=== PATIENT | male | born 1975 | race Caucasian/White ===

== ENCOUNTER 2016-12-22 22:20 | Emergency (ER) | payer MEDICAID, SELFPAY ==
[2016-12-22 22:43] VITALS: BP 114/78
--- NOTE | 2016-12-22 23:09 | EDM.PDOC ---
[id number]: Left flank pain Time Seen by Provider: 12/22/16 22:45 Source of Information: Reports: Patient History Limitations: Reports: No Limitations - History of Present Illness INITIAL COMMENTS - FREE TEXT/NARRATIVE: Pt has a long standing history with kidney stones and has had multiple surgeries in the past. He has also been seen by many specialities regarding this. Today the pain has progressed despite taking Toradol at 12noon and again 8pm. The pain did not gotten any better. Pt has many adhesions that causes this chronic pain. Onset: Gradual Location: Reports: Back Quality: Reports: Ache, Sharp, Stabbing Severity: Severe Improves with: Reports: Rest. Denies: Cold Therapy, Heat Therapy Worsens with: Reports: Movement Associated Symptoms: Reports: No Other Symptoms. Denies: Fever/Chills, Headaches, Nausea/Vomiting, Weakness Treatments NURSE MIDWIFE/CLINICAL INSTRUCTOR: Reports: Other (see below) (Toradol at 8pm. 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 - Past Surgical History Male Surgical History: Reports: Kidney Stone Extraction Musculoskeletal Surgical History: Reports: Arthroscopic Knee, Shoulder Surgery Social & Family History - Tobacco Use Smoking Status *Q: Never Smoker Years of Tobacco use: 20 Second Hand Smoke Exposure: No - Alcohol Use Days Per Week of Alcohol Use: 0 Number of Drinks Per Day: 4 Total Drinks Per Week: 0 - Recreational Drug Use Recreational Drug Use: No ED ROS GENERAL - Review of Systems Review Of Systems: See Below Constitutional: Reports: No Symptoms HEENT: Reports: No Symptoms Respiratory: Reports: No Symptoms Cardiovascular: Reports: No Symptoms GI/Abdominal: Reports: No Symptoms Musculoskeletal: Reports: Back Pain, Other (flank pain ) Skin: Reports: No Symptoms Neurological: Reports: No Symptoms ED EXAM, RENAL/ - Physical Exam Exam: See Below Exam Limited By: No Limitations General Appearance: Alert, WD/WN, No Apparent Distress Respiratory/Chest: No Respiratory Distress, Lungs Clear Cardiovascular: Normal Peripheral Pulses, Regular Rate, Rhythm, No Edema, No JVD , No Murmur GI/Abdominal: Normal Bowel Sounds, Non-Tender, No Distention, No Abnormal Bruit , No Mass Back Exam: Normal Inspection, Full Range of Motion (painful when moving but can complete), Muscle Spasm Extremities: Normal Inspection, Normal Range of Motion Neurological: Alert, Oriented Skin Exam: Warm, Dry, Intact Course - Vital Signs Last Recorded V/S: Last Vital Signs Temp 36.1 C 12/22/16 22:36 Pulse 76 12/22/16 22:36 Resp 16 12/22/16 22:36 BP 114/78 12/22/16 22:36 Pulse Ox 97 12/22/16 22:36 - Orders/Labs/Meds Meds: Medications Discontinued Medications Generic Name Dose Route Start Last Admin Trade Name Freq PRN Reason Stop Dose Admin Orphenadrine Citrate 60 mg 12/22/16 23:30 12/22/16 23:32 Norflex IM 60 mg Q12H NATIVIDAD Administration Departure - Departure Time of Disposition: 23:53 Disposition: Home, Self-Care 01 Condition: Good Clinical Impression: Back muscle spasm, Flank pain, Pain - Discharge Information Instructions: Pain Medicine Instructions, [id number] Referrals: Tyra Andrews NP [Primary Care Provider] - Forms: ED Department Discharge, ED Summary Discharge
== END 2016-12-22 23:53 | disposition home or self-care (01) ==
LOC: VM.ED 22:20
DX: M62.830 Muscle spasm of back (principal); R10.9 Unspecified abdominal pain; Z88.5 Allergy status to narcotic agent; Z79.899 Other long term (current) drug therapy
CPT/HCPCS: 96372; 99284; J2360

== ENCOUNTER 2017-01-28 18:56 | Emergency (ER) | payer MEDICAID ==
[2017-01-28] MEDS ORDERED: Sodium Chloride 0.9% 10 ML Syringe FLUSH PRN (19:13)
[2017-01-28] MEDS ORDERED: Sodium Chloride 0.9% 1,000 ML IV ONE (19:15)
[2017-01-28 19:16] VITALS: BP 167/116
[2017-01-28] MEDS ORDERED: Ondansetron 4 MG/2 ML SDV IVPUSH ONE (19:16)
--- NOTE | 2017-01-28 19:22 | EDM.PDOC ---
ED HPI GENERAL MEDICAL PROBLEM - General Chief Complaint: Flank Pain Stated Complaint: LEFT KIDNEY/FLANK PAIN Time Seen by Provider: 01/28/17 18:58 Source of Information: Reports: Patient, Family, RN, RN Notes Reviewed History Limitations: Reports: No Limitations - History of Present Illness INITIAL COMMENTS - FREE TEXT/NARRATIVE: Patient presents emergency room at [facility] complaining of chronic left flank pain. The patient states his kidney issues began about 2-3 years ago. The patient states she's had multiple issues with kidney stones, renal adhesions, and celiac nerve adhesions. The patient states that he has been seen at the [facility] in [place] for celiac nerve blocks. The patient states that the pain is present continuously to some degree. The patient states that the pain has escalated over the past couple of days. The patient states he has been using Tylenol and Advil without any relief. The patient complains of nausea and vomiting. No diarrhea. No fevers. Otherwise no other concerns. Duration: Chronic Left Flank Pain Score (Numeric/FACES): 7 - Related Data Allergies Allergy/AdvReac Type Severity Reaction Status Date / Time morphine Allergy Itching Verified 01/28/17 19:07 [email or web address] Allergy Itching Uncoded 01/28/17 19:08 Home Meds: Home Meds . 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 - Past Surgical History Male Surgical History: Reports: Kidney Stone Extraction Musculoskeletal Surgical History: Reports: Arthroscopic Knee, Shoulder Surgery Social & Family History - Tobacco Use Smoking Status *Q: Never Smoker Years of Tobacco use: 20 Second Hand Smoke Exposure: No - Alcohol Use Days Per Week of Alcohol Use: 0 Number of Drinks Per Day: 4 Total Drinks Per Week: 0 - Recreational Drug Use Recreational Drug Use: No ED ROS GENERAL - Review of Systems Review Of Systems: See Below Constitutional: Denies: Fever, Chills, Weakness Respiratory: Denies: Shortness of Breath, Cough Cardiovascular: Denies: Chest Pain, Palpitations GI/Abdominal: Reports: Nausea, Vomiting. Denies: Abdominal Pain, Diarrhea : Reports: Flank Pain Skin: Reports: No Symptoms Neurological: Reports: No Symptoms ED EXAM, RENAL/ - Physical Exam Exam: See Below Exam Limited By: No Limitations General Appearance: Alert, No Apparent Distress Respiratory/Chest: No Respiratory Distress, Lungs Clear, Normal Breath Sounds Cardiovascular: Regular Rate, Rhythm GI/Abdominal: Normal Bowel Sounds, Soft, Non-Tender (Male) Exam: Deferred Neurological: Alert, Oriented Skin Exam: Warm, Dry, Intact, Normal Color, No Rash Course - Vital Signs Last Recorded V/S: Last Vital Signs Temp 36.9 C 01/28/17 19:00 Pulse 89 01/28/17 19:00 Resp 16 01/28/17 19:00 BP 167/116 H 01/28/17 19:00 Pulse Ox - Orders/Labs/Meds Orders: Active Orders 24 hr Category Date Time Status URINE DRUG SCREEN,POC [POC] Stat Lab 01/28/17 20:08 Uncollected Sodium Chloride 0.9% [Saline Flush] Med 01/28/17 19:13 Active 10 ml FLUSH ASDIRECTED PRN Peripheral IV Insertion Adult [OM.PC] Routine Oth 01/28/17 19:13 Ordered Medication Orders Sodium Chloride (Saline Flush) 10 ml FLUSH ASDIRECTED PRN PRN Reason: Keep Vein Open Labs: Laboratory Tests 01/28/17 01/28/17 Range/Units 19:31 19:37 WBC 4.6 (4.0-10.0) x10^3/uL RBC 3.92 L (4.5-6.0) x10^6/uL Hgb 13.5 L D (14.0-18.0) g/dL Hct 36.7 L (40.0-52.0) % MCV 93.6 H (78.0-93.0) fL MCH 34.4 H (26.0-32.0) pg MCHC 36.8 H (32.0-36.0) g/dL RDW Coeff of Sofía 11.3 (10.0-15.0) % Plt Count 168 (130-400) x10^3/uL Neut % (Auto) 37.6 L (50.0-80.0) % Lymph % (Auto) 41.3 (25.0-50.0) % [place] % (Auto) 16.2 H (2.0-11.0) % Eos % (Auto) 4.5 H (0.0-4.0) % Baso % (Auto) 0.4 (0.2-1.2) % Urine Color Yellow (YELLOW) Urine Appearance Clear (CLEAR) Urine pH 6.5 (5.0-8.0) Ur Specific Logan 1.025 Urine Protein Negative (NEGATIVE) mg/dL Urine Glucose (UA) Negative (NEGATIVE) mg/dL Urine Ketones Negative (NEGATIVE) mg/dL Urine Occult Blood Negative (NEGATIVE) Urine Nitrite Negative (NEGATIVE) Urine Bilirubin Negative (NEGATIVE) Urine Urobilinogen 1.0 (0.2) EU/dL Ur Leukocyte Esterase Negative (NEGATIVE) Urine RBC 0-5 (NOT SEEN) /HPF Urine WBC Not seen (NOT SEEN) /HPF Ur Squamous Epith Cells Not seen (NEGATIVE) /HPF Urine Bacteria Rare (NEGATIVE) /HPF Urine Mucus Few H (NEGATIVE) /LPF Meds: Medications Generic Name Dose Route Start Last Admin Trade Name Freq PRN Reason Stop Dose Admin Sodium Chloride 10 ml 01/28/17 19:13 Saline Flush FLUSH ASDIRECTED PRN Keep Vein Open Discontinued Medications Generic Name Dose Route Start Last Admin Trade Name Freq PRN Reason Stop Dose Admin Chlorpromazine HCl 50 mg 01/28/17 19:28 01/28/17 19:40 Thorazine IM 01/28/17 19:29 50 mg ONETIME ONE Administration Sodium Chloride 1,000 mls @ 999 mls/hr 01/28/17 19:15 01/28/17 19:35 Normal Saline IV 01/28/17 20:15 999 mls/hr ONETIME ONE Administration Chlorpromazine HCl 25 mg/ 51 mls @ 100 mls/hr 01/28/17 19:22 Sodium Chloride IV 01/28/17 19:52 ONETIME ONE Ondansetron HCl 4 mg 01/28/17 19:16 01/28/17 19:42 Zofran IVPUSH 01/28/17 19:17 4 mg ONETIME ONE Administration Orphenadrine Citrate 60 mg 01/28/17 19:23 01/28/17 19:40 Norflex IM 01/28/17 19:24 60 mg Q12H ONE Administration Departure - Departure Time of Disposition: 20:54 Disposition: Home, Self-Care 01 Condition: Good Clinical Impression: Flank pain, chronic - Discharge Information Instructions: Pain Medicine Instructions, [id number], Flank Pain, Easy-to- Read Referrals: Tyra Andrews NP [Primary Care Provider] - Forms: ED Department Discharge Additional Instructions: 1. Stay well hydrated and rest 2. Continue to alternate Tylenol/Advil 3. Call your Primary care provider to schedule a follow up ER appointment - Problem List Review Problem List Initiated/Reviewed/Updated: Yes - My Orders Last 24 Hours: My Active Orders 01/28/17 19:13 Sodium Chloride 0.9% [Saline Flush] 10 ml FLUSH ASDIRECTED PRN Peripheral IV Insertion Adult [OM.PC] Routine 01/28/17 20:08 URINE DRUG SCREEN,POC [POC] Stat - Assessment/Plan Last 24 Hours: My Active Orders 01/28/17 19:13 Sodium Chloride 0.9% [Saline Flush] 10 ml FLUSH ASDIRECTED PRN Peripheral IV Insertion Adult [OM.PC] Routine 01/28/17 20:08 URINE DRUG SCREEN,POC [POC] Stat Assessment:: Patient re-assessed. Pain is much improved and patient feels better. Nausea has resolved as well. Plan: Patient will be discharged home. I recommend the patient that he follow-up with his primary care provider in regards to his pain. Patient agreed.
== END 2017-01-28 21:02 | disposition home or self-care (01) ==
LOC: VM.ED 18:56
DX: R10.9 Unspecified abdominal pain (principal); Z88.5 Allergy status to narcotic agent; Z88.8 Allergy status to other drugs, medicaments and biological substances
CPT/HCPCS: 80305; 81001; 85025; 96361; 96372; 96374; 99284; J2360; J2405; J3230; J7030

== ENCOUNTER 2020-10-12 03:40 | Emergency (ER) | payer MEDICAID ==
--- NOTE | 2020-10-12 04:33 | EDM.PDOC ---
ED HPI GENERAL MEDICAL PROBLEM - General Chief Complaint: Genitourinary Problem Stated Complaint: Left flank pain Time Seen by Provider: 10/12/20 04:20 Source of Information: Reports: Patient, Family History Limitations: Reports: No Limitations - History of Present Illness INITIAL COMMENTS - FREE TEXT/NARRATIVE: Patient presents not to the ER with ongoing left flank pain that is increased from his daily chronic flank pain he states his symptoms about 8 out of 10 sharp stabbing located just over the left kidney. Patient has been seeing nephrology at [facility] for quite some time now secondary to history of renal artery stenosis and kidney stones has had multiple surgeries stents. He has also have nerve ablation x2 to that kidney and is currently pending a possible nephrectomy. His last GFR was 45 on September 29 he normally however somewhere around the upper 40s lower 50s his last ultrasound was 3 weeks ago and was normal He states this feels like his normal pain it does not feel like a kidney stone. He says usually Benadryl Dilaudid a bag IV fluids works for treatment. 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: Acetaminophen - Related Data Allergies Allergy/AdvReac Type Severity Reaction Status Date / Time morphine Allergy Itching Verified 01/28/17 19:07 oxycodone Allergy Difficulty Verified 10/10/20 15:31 Breathing diagnostic x-ray materials Allergy Paralysis Uncoded 10/10/20 15:31 [email or web address] Allergy Itching Uncoded 01/28/17 19:08 Home Meds: Home Meds Aspirin [Halfprin] 81 mg PO QAM 09/13/19 [History] hydroCHLOROthiazide [Hydrochlorothiazide] 25 mg PO QPM 09/13/19 [History] Acetaminophen [Tylenol Extra Strength] 500 - 1,000 mg PO Q6H PRN 10/10/20 [History] Clopidogrel Bisulfate [Clopidogrel] 1 tab PO DAILY 10/10/20 [History] HYDROmorphone [Dilaudid] 1 tab PO Q6H PRN 10/10/20 [History] Potassium Chloride [Klor-Con M20] 20 meq PO DAILY 10/10/20 [History] Sodium Bicarbonate 1,300 mg PO TID 10/10/20 [History] amLODIPine [Norvasc] 5 mg PO DAILY 10/10/20 [History] atorvaSTATin Calcium [Lipitor] 20 mg PO DAILY 10/10/20 [History] Past Medical History - Past Health History Medical/Surgical History: Denies Medical/Surgical History HEENT History: Reports: Hard of Hearing Other HEENT History: hearing aids Cardiovascular History: Reports: Angina Other Cardiovascular History: Abnormal nuclear stress test. 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 Chronic flank pain. cystic kidney disease. CKD ll. Renal colic. HX gross hematuria. cystoscopy 2019. Celiac nerve block (several times). Nerve ablation to left kidney. Failed RFA to left flank Neurological History: Reports: Other (See Below) Other Neuro History: chronic pain syndrome Endocrine/Metabolic History: Reports: Other (See Below) Other Endocrine/Metabolic History: Disorder of calcium metabolism - Past Surgical History GI Surgical History: Reports: Colonoscopy, Other (See Below) Other GI Surgeries/Procedures: hernia surgeries Male Surgical History: Reports: Kidney Stone Extraction, Lithotripsy ([facility]), Renal Calculus Musculoskeletal Surgical History: Reports: Arthroscopic Knee, Shoulder Surgery Other Musculoskeletal Surgeries/Procedures:: fx clavicle. Dislocation of acromioclavicular joint Social & Family History - Family History Family Medical History: No Pertinent Family History - Caffeine Use Caffeine Use: Reports: Coffee ED ROS GENERAL - Review of Systems Review Of Systems: See Below Constitutional: Reports: No Symptoms HEENT: Reports: No Symptoms Respiratory: Reports: No Symptoms Cardiovascular: Reports: No Symptoms Endocrine: Reports: No Symptoms GI/Abdominal: Reports: No Symptoms : Reports: Flank Pain. Denies: Discharge, Dysuria, Frequency, Hematuria, Incontinence, Pain, Urgency, Urinary Retention Musculoskeletal: Reports: No Symptoms Skin: Reports: No Symptoms Neurological: Reports: No Symptoms Psychiatric: Reports: No Symptoms Hematologic/Lymphatic: Reports: No Symptoms Immunologic: Reports: No Symptoms ED EXAM, RENAL/ - Physical Exam Exam: See Below Exam Limited By: No Limitations General Appearance: Alert, WD/WN, No Apparent Distress, Other (Mild discomfort noted) Eye Exam: Bilateral Eye: Normal Inspection Throat/Mouth: Normal Inspection, Normal Lips, Normal Teeth, Normal Gums, Normal Oropharynx, Normal Voice, No Airway Compromise Head: Atraumatic, Normocephalic Neck: Normal Inspection, Supple, Non-Tender, Full Range of Motion Respiratory/Chest: No Respiratory Distress, Lungs Clear, Normal Breath Sounds, No Accessory Muscle Use, Chest Non-Tender Cardiovascular: Normal Peripheral Pulses, Regular Rate, Rhythm, No Edema, No Gallop, No JVD, No Murmur, No Rub GI/Abdominal: Normal Bowel Sounds, Soft, Non-Tender, No Organomegaly, No Dist ention, No Abnormal Bruit, No Mass Back Exam: Normal Inspection, Full Range of Motion. No: CVA Tenderness (L), CVA Tenderness (R) Extremities: Normal Inspection, Normal Range of Motion, Non-Tender, No Pedal Edema, Normal Capillary Refill Neurological: Alert, Oriented, CN II-XII Intact, Normal Cognition, Normal Gait, Normal Reflexes, No Motor/Sensory Deficits Psychiatric: Normal Affect, Normal Mood Skin Exam: Warm, Dry, Intact, Normal Color, No Rash Course - Vital Signs Text/Narrative:: We will check CBC BMP patient was given 1 mg IV Dilaudid 25 mg Benadryl IV with a bag normal saline Recheck patient at this time no pain level is changed. Dilaudid 1 mg IV repeat dose All lab work within normal limits GFR 51 BUN and creatinine are normal - Orders/Labs/Meds Orders: Active Orders 24 hr Category Date Time Status HYDROmorphone [Dilaudid] Med 10/12/20 05:22 Once 1 mg IVPUSH ONETIME ONE Sodium Chloride 0.9% [Normal Saline] 1,000 ml Med 10/12/20 04:27 Active IV ONETIME Medication Orders Hydromorphone HCl (Hydromorphone 1 Mg/Ml Syringe) 1 mg IVPUSH ONETIME ONE Stop: 10/12/20 05:23 Sodium Chloride (Normal Saline) 1,000 mls @ 999 mls/hr IV ONETIME ONE Stop: 10/12/20 05:27 Last Admin: 10/12/20 04:45 Dose: 999 mls/hr Documented by: ELIEL Labs: Laboratory Tests 10/12/20 Range/Units 04:48 Sodium 139 (136-145) mmol/L Potassium 3.4 L (3.5-5.1) mmol/L Chloride 102 (98-107) mmol/L Carbon Dioxide 26 (21-32) mmol/L Anion Gap 14.4 (5-15) mmol/L BUN 16 (7-18) mg/dL Creatinine 1.5 H (0.70-1.30) mg/dL Est Cr Clr Drug Dosing TNP Estimated GFR (MDRD) 51 Glucose 101 H (70-99) mg/dL Calcium 9.4 (8.5-10.1) mg/dL Meds: Medications Generic Name Dose Route Start Last Admin Trade Name Freq PRN Reason Stop Dose Admin Hydromorphone HCl 1 mg 10/12/20 05:22 Hydromorphone 1 Mg/Ml Syringe IVPUSH 10/12/20 05:23 ONETIME ONE Sodium Chloride 1,000 mls @ 999 mls/hr 10/12/20 04:27 10/12/20 04:45 Normal Saline IV 10/12/20 05:27 999 mls/hr ONETIME ONE Administration Discontinued Medications Generic Name Dose Route Start Last Admin Trade Name Freq PRN Reason Stop Dose Admin Diphenhydramine HCl 25 mg 10/12/20 04:26 10/12/20 04:50 Diphenhydramine 50 Mg/Ml Sdv IVPUSH 10/12/20 04:27 25 mg ONETIME ONE Administration Hydromorphone HCl 1 mg 10/12/20 04:26 10/12/20 04:52 Hydromorphone 1 Mg/Ml Syringe IVPUSH 10/12/20 04:27 1 mg ONETIME ONE Administration Departure - Departure Time of Disposition: 06:00 Disposition: Home, Self-Care 01 Condition: Good Clinical Impression: Flank pain, chronic - Discharge Information *PRESCRIPTION DRUG MONITORING PROGRAM REVIEWED*: No *COPY OF PRESCRIPTION DRUG MONITORING REPORT IN PATIENT PAOLO: No Forms: ED Department Discharge - Problem List & Annotations (1) Renal colic SNOMED Code(s): 3752683 Code(s): N23 - UNSPECIFIED RENAL COLIC Status: Chronic Priority: Low Current Visit: No - My Orders Last 24 Hours: My Active Orders 10/12/20 04:27 Sodium Chloride 0.9% [Normal Saline] 1,000 ml IV ONETIME 10/12/20 05:22 HYDROmorphone [Dilaudid] 1 mg IVPUSH ONETIME ONE - Assessment/Plan Last 24 Hours: My Active Orders 10/12/20 04:27 Sodium Chloride 0.9% [Normal Saline] 1,000 ml IV ONETIME 10/12/20 05:22 HYDROmorphone [Dilaudid] 1 mg IVPUSH ONETIME ONE
[2020-10-12] MEDS: Sodium Chloride 0.9% 1,000 ML IV ONE (04:45)
[2020-10-12] MEDS: diphenhydrAMINE 50 MG/ML SDV IVPUSH ONE (04:50)
[2020-10-12] MEDS: HYDROmorphone 1 MG/ML Syringe IVPUSH ONE ×3 (04:52→06:11)
[2020-10-12 05:10] LABS: CHLORIDE,CL 102 mmol/L (98-107); SODIUM,NA 139 mmol/L (136-145)
[2020-10-12 05:11] LABS: ANION GAP 14.4 mmol/L (5-15)
[2020-10-12 06:18] VITALS: BP 134/77; PULSE 76
== END 2020-10-12 06:40 | disposition home or self-care (01) ==
LOC: VM.ED 03:40
DX: R10.9 Unspecified abdominal pain (principal); G89.29 Other chronic pain; N18.2 Chronic kidney disease, stage 2 (mild); Z88.5 Allergy status to narcotic agent; Z88.4 Allergy status to anesthetic agent; Z88.8 Allergy status to other drugs, medicaments and biological substances; Z79.82 Long term (current) use of aspirin; Z79.02 Long term (current) use of antithrombotics/antiplatelets; Z91.041 Radiographic dye allergy status; Z79.899 Other long term (current) drug therapy
CPT/HCPCS: 80048; 96374; 96375; 96376; 99284-25; J1170; J1200; J7030

== ENCOUNTER 2023-09-17 10:59 | Emergency (ER) | payer MEDICARE, MEDICAID ==
[2023-09-17 11:18] VITALS: BP 127/92; PULSE 91
[2023-09-17] MEDS ORDERED: Naloxone 0.4 MG/ML SDV IVPUSH PRN (11:44)
[2023-09-17] MEDS: HYDROmorphone 0.5 MG/0.5 ML Syringe IVPUSH ONE (11:53)
== END 2023-09-17 12:15 | disposition home or self-care (01) ==
LOC: VM.ED 10:59
DX: M62.830 Muscle spasm of back (principal); G89.29 Other chronic pain; R10.9 Unspecified abdominal pain; N18.30 Chronic kidney disease, stage 3 unspecified; Z88.8 Allergy status to other drugs, medicaments and biological substances; Z88.1 Allergy status to other antibiotic agents; Z88.5 Allergy status to narcotic agent; Z79.82 Long term (current) use of aspirin; Z79.899 Other long term (current) drug therapy
CPT/HCPCS: 96374; 99283-25; 99284; J1170

== ENCOUNTER 2023-12-06 01:18 | Emergency (ER) | payer MEDICARE, MEDICAID ==
[2023-12-06] MEDS ORDERED: Acetaminophen 500 MG Tab PO ONE (01:39)
[2023-12-06] MEDS: HYDROmorphone 1 MG/ML Syringe IVPUSH ONE (02:03)
[2023-12-06] MEDS: Orphenadrine 60 MG/2 ML Inj IV ONE (02:04)
[2023-12-06 02:30] VITALS: BP 122/86; PULSE 69
== END 2023-12-06 02:25 | disposition home or self-care (01) ==
LOC: VM.ED 01:18
DX: G89.29 Other chronic pain (principal); M54.9 Dorsalgia, unspecified; N18.9 Chronic kidney disease, unspecified; Z79.82 Long term (current) use of aspirin; Z79.899 Other long term (current) drug therapy; Z79.891 Long term (current) use of opiate analgesic; Z88.8 Allergy status to other drugs, medicaments and biological substances; Z88.5 Allergy status to narcotic agent
CPT/HCPCS: 96374; 96375; 99283-25; J1170; J2360

== ENCOUNTER 2024-03-11 02:35 | Emergency (ER) | payer MEDICARE, MEDICAID ==
[2024-03-11] MEDS: Acetaminophen 500 MG Tab PO ONE (03:11)
[2024-03-11] MEDS: HYDROmorphone 1 MG/ML Syringe IVPUSH ONE (03:11)
[2024-03-11] MEDS: Orphenadrine 60 MG/2 ML Inj IV ONE (03:43)
[2024-03-11] MEDS: Orphenadrine 60 MG/2 ML Inj IM ONE (03:44)
[2024-03-11 03:54] VITALS: BP 142/82; PULSE 82
== END 2024-03-11 04:01 | disposition home or self-care (01) ==
LOC: VM.ED 02:35
DX: M54.50 Low back pain, unspecified (principal); N18.9 Chronic kidney disease, unspecified; F17.210 Nicotine dependence, cigarettes, uncomplicated; Z79.899 Other long term (current) drug therapy; Z79.82 Long term (current) use of aspirin; Z79.891 Long term (current) use of opiate analgesic; Z88.5 Allergy status to narcotic agent; Z88.8 Allergy status to other drugs, medicaments and biological substances
CPT/HCPCS: 96374; 96375; 99283-25; 99284; A9270-GY; J1171; J2360

== ENCOUNTER 2024-10-30 23:57 | Emergency (ER) | payer MEDICAID, MEDICARE ==
[2024-10-31] MEDS ORDERED: Naloxone 0.4 MG/ML SDV IVPUSH PRN (00:01)
[2024-10-31] MEDS: HYDROmorphone 1 MG/ML Syringe IVPUSH ONE ×2 (00:07→00:44)
[2024-10-31] MEDS: Orphenadrine 60 MG/2 ML Inj IV ONE (00:08)
[2024-10-31 01:48] VITALS: BP 144/92
[2024-10-31 01:55] VITALS: PULSE 88
== END 2024-10-31 01:10 | disposition home or self-care (01) ==
LOC: VM.ED 23:57
DX: M54.9 Dorsalgia, unspecified (principal); N18.9 Chronic kidney disease, unspecified; Z79.899 Other long term (current) drug therapy; Z88.8 Allergy status to other drugs, medicaments and biological substances; Z88.5 Allergy status to narcotic agent; Z79.82 Long term (current) use of aspirin
CPT/HCPCS: 96374; 96375; 96376; 99283; 99283-25; J1171; J2360

== ENCOUNTER 2025-01-09 00:41 | Emergency (ER) | payer MEDICAID, MEDICARE, OTHER ==
[2025-01-09 02:05] VITALS: PULSE 110
[2025-01-09 02:12] VITALS: BP 157/93
== END 2025-01-09 02:13 | disposition home or self-care (01) ==
LOC: VM.ED 00:41
DX: N23 Unspecified renal colic (principal); N18.9 Chronic kidney disease, unspecified; Z88.5 Allergy status to narcotic agent; Z88.8 Allergy status to other drugs, medicaments and biological substances; Z79.899 Other long term (current) drug therapy; Z79.82 Long term (current) use of aspirin
CPT/HCPCS: 96374; 96376; 99283-25; 99284; J1171

== ENCOUNTER 2025-02-04 11:27 | Emergency (ER) | payer MEDICARE, OTHER ==
[2025-02-04] MEDS ORDERED: Naloxone 0.4 MG/ML SDV IVPUSH PRN (13:20)
[2025-02-04] MEDS ORDERED: Sodium Chloride 0.9% 10 ML Syringe FLUSH PRN (13:20)
[2025-02-04 14:44] VITALS: BP 146/80; PULSE 84
== END 2025-02-04 14:24 | disposition home or self-care (01) ==
LOC: VM.ED 11:27
DX: N28.9 Disorder of kidney and ureter, unspecified (principal); M54.9 Dorsalgia, unspecified; Z88.5 Allergy status to narcotic agent; Z88.8 Allergy status to other drugs, medicaments and biological substances; Z79.82 Long term (current) use of aspirin; Z79.899 Other long term (current) drug therapy
CPT/HCPCS: 96374; 99283; J1171

== ENCOUNTER 2025-03-14 21:44 | Emergency (ER) | payer MEDICARE, OTHER ==
[2025-03-14] MEDS ORDERED: Sodium Chloride 0.9% 10 ML Syringe FLUSH PRN (21:51)
[2025-03-14 22:28] VITALS: BP 174/97; PULSE 126
== END 2025-03-14 22:57 | disposition home or self-care (01) ==
LOC: VM.ED 21:44 → SUPCPDRO 21:44 → VM.ED 22:57
DX: G89.4 Chronic pain syndrome (principal); Z88.8 Allergy status to other drugs, medicaments and biological substances; Z88.5 Allergy status to narcotic agent; Z79.82 Long term (current) use of aspirin; Z79.899 Other long term (current) drug therapy
CPT/HCPCS: 96374; 96376; 99283; 99283-25; J1171

== ENCOUNTER 2025-05-03 20:33 | Emergency (ER) | payer MEDICARE, OTHER ==
[2025-05-03 21:04] VITALS: BP 137/73; PULSE 110
[2025-05-03] MEDS: Potassium Bicarbonate/Cit Ac 10 MEQ Effervescent Tab PO ONE (21:05)
== END 2025-05-03 21:09 | disposition home or self-care (01) ==
LOC: VM.ED 20:33 → SUPCPDRO 20:33 → VM.ED 21:09
DX: E87.6 Hypokalemia (principal); N18.9 Chronic kidney disease, unspecified; Z79.899 Other long term (current) drug therapy; Z79.82 Long term (current) use of aspirin; Z88.8 Allergy status to other drugs, medicaments and biological substances; Z88.5 Allergy status to narcotic agent; Z88.6 Allergy status to analgesic agent
CPT/HCPCS: 36415; 84132; 99284; A9270-GY